=== PATIENT | male | born 1990 | race African-American/Black ===

== ENCOUNTER 2021-09-21 19:02 | Emergency (ER) | payer OTHER ==
[~2021-09-21] VITALS: Ht 182.9 cm; Wt 108.9 kg
--- NOTE | 2021-09-21 20:25 | NUR ---
PT BIBS C/O FEVER, HEADACHE, FATIGUE, & NAUSEA AND VOMMITING X6DAYS UNRELIEVED BY TYLENOL. PATIENT STATES HE IS "UNABLE TO HOLD ANYTHING DOWN AND FEELS DEHYDRATED." PATIENT ALERT AND ORIENTED X3. AMBULATORY WITH NON LABORED BREATHING.
[2021-09-21] MEDS ORDERED: IBUPROFEN 600 MG TABLET PO ONE (21:00)
[2021-09-21] MEDS ORDERED: ACETAMINOPHEN ES 500 MG TABLET PO ONE (21:00)
[2021-09-21] MEDS ORDERED: IV NS 0.9% 1,000 ML BAG IV ONE (21:00)
[2021-09-21] MEDS ORDERED: ACETAMINOPHEN ES 500 MG TABLET ONE (21:13)
[2021-09-21] MEDS ORDERED: IBUPROFEN 600 MG TABLET ONE (21:14)
--- NOTE | 2021-09-21 21:39 | NUR ---
COVID AND FLU SWABS COLLECTED AND SENT TO LAB
--- NOTE | 2021-09-21 21:39 | NUR ---
Celeste woody in [facility] - 09/21/21 at 2251 by TYREL COVID AND FLU7 SWABS COLLECTED AND SENT TO LAB
[2021-09-22] MEDS ORDERED: SUMA50TA17 PO (00:31)
[2021-09-22] MEDS ORDERED: ONDA4TAB5 PO (00:32)
[2021-09-22 00:41] VITALS: BP 129/88
--- NOTE | 2021-09-22 00:41 | NUR ---
Patient discharged to home in stable condition. Written and verbal after care instructions given. Patient verbalizes understanding of instruction.
--- NOTE | 2021-09-22 00:41 | NUR ---
Celeste woody in ED - 09/22/21 at 0041 by TYREL Patient discharged to home in stable condition. Written and verbal after care instructions given. Patient verbalizes understanding of instruction. IV line discontinued and gauze applied to site without complication.
== END 2021-09-22 00:41 | disposition home or self-care (01) ==
LOC: ER 19:07
DX: J06.9 Acute upper respiratory infection, unspecified (principal); Z20.822 Contact with and (suspected) exposure to COVID-19; G43.909 Migraine, unspecified, not intractable, without status migrainosus
CPT/HCPCS: 71045; 87426; 87804 ×2; 96360; 99284; C9803; J7030